=== PATIENT | female | born 1970 | race African-American/Black ===

== ENCOUNTER 2019-07-26 16:31 | Observation (INO) | payer OTHER, SELFPAY ==
[2019-07-26] MEDS ORDERED: KETOROLAC 30 MG/ML INJ ONE ×2 (17:40→21:28)
[2019-07-26] MEDS ORDERED: METHOCARBAMOL 1,000 MG/10 ML VIAL IV ONE (17:40)
[2019-07-26] MEDS ORDERED: NA CHLORIDE 0.9% 100 ML IV ONE (17:40)
[2019-07-26] MEDS ORDERED: ONDANSETRON 4 MG/2 ML VIAL ONE ×2 (17:40→19:57)
[2019-07-26] MEDS ORDERED: MORPHINE 4 MG/ML SYR ONE (17:40)
[2019-07-26 18:57] LABS: Urine Blood NEGATIVE (NEG); Urine Glucose NEGATIVE (NEG); Urine Protein 1+ (NEG)
--- NOTE | 2019-07-26 19:03 | ER ---
Nurse's Notes [facility] Name: Paula Tavares Age: 49 yrs Sex: Female : 1970 Arrival Date: 07/26/2019 Time: 16:34 Bed 14 Private MD: Diagnosis: Lobar pneumonia, unspecified organism;Urinary tract infection, site not specified Presentation: 07/26 16:37 Presenting complaint: Left mid back pain and nausea x 3 days. Transition of care: hb patient was not received from another setting of care. Onset of symptoms was July 23, 2019. Risk Assessment: Do you want to hurt yourself or someone else? Patient reports no desire to harm self or others. Initial Sepsis Screen: Does the patient meet any 2 criteria? No. Patient's initial sepsis screen is negative. Does the patient have a suspected source of infection? No. Patient's initial sepsis screen is negative. Care prior to arrival: None. 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 - Social history:: Smoking status: Patient/guardian denies using tobacco. - Ebola Screening: : No symptoms or risks identified at this time. Screenin:53 Abuse screen: Denies threats or abuse. Denies injuries from another. Nutritional ph screening: No deficits noted. Tuberculosis screening: No symptoms or risk factors identified. Fall Risk None identified. Assessment: 17:15 General: Appears in no apparent distress. uncomfortable. Pain: Complains of pain in ph left mid back. Neuro: Level of Consciousness is awake, alert, obeys commands, Oriented to person, place, time, situation. Cardiovascular: Capillary refill < 3 seconds in bilateral fingers Patient's skin is warm and dry. Respiratory: Airway is patent Respiratory effort is even, unlabored, Respiratory pattern is regular, symmetrical. GI: Reports nausea, Patient currently denies abdominal pain, vomiting. Derm: Skin is intact, is healthy with good turgor, Skin is pink, warm \\T\\ dry. Musculoskeletal: Circulation, motion, and sensation intact. Range of motion: intact in all extremities. 18:30 Reassessment: Patient appears in no apparent distress at this time. Patient and/or ph family updated on plan of care and expected duration. Pain level reassessed. Patient is alert, oriented x 3, equal unlabored respirations, skin warm/dry/pink. Pt states, " It still hurts but not as bad.". 19:15 Reassessment: Patient states back pain returning at this time; Dr. Borrero at bedside lp1 to discuss plan of care, will add some orders prior to discharge. 19:15 General: Appears uncomfortable, Behavior is appropriate for age. lp1 19:35 Reassessment: Patient returned from CT; States nausea returning at this time. lp1 20:00 Reassessment: Pt complaining of nausea, provider notified, medication order obtained, ea medication administered, pt tolerating well. 20:45 Reassessment: Dr. Regalado discussed care and results with patient; patient states lp1 continued left back pain. 21:13 Reassessment: Dr. Da Silva at bedside to discuss care with patient. lp1 22:26 Reassessment: Patient appears in no apparent distress at this time. No changes from wh previously documented assessment. Patient and/or family updated on plan of care and expected duration. Pain level reassessed. Patient is alert, oriented x 3, equal unlabored respirations, skin warm/dry/pink. Vital Signs: 16:40 BP 158 / 100; Pulse 89; Resp 16; Temp 98.5; Pulse Ox 100% on R/A; Weight 112.49 kg; hb Height 5 ft. 5 in. (165.10 cm); Pain 10/10; 17:40 BP 148 / 84; Pulse 89; Resp 18; Temp 97.5(TE); Pulse Ox 99% on R/A; mh5 18:55 BP 140 / 81; Pulse 95; Resp 17; Pulse Ox 100% on R/A; mh5 19:30 BP 142 / 86; Pulse 90; Resp 18; Pulse Ox 100% on R/A; Pain 8/10; lp1 20:15 BP 141 / 87; Pulse 92; Resp 18; Pulse Ox 100% on R/A; lp1 21:12 BP 132 / 76; Pulse 94; Resp 18; Pulse Ox 100% on R/A; Pain 8/10; lp1 22:27 BP 140 / 75; Pulse 89; Resp 18; Pulse Ox 99% on R/A; wh 16:40 Body Mass Index 41.27 (112.49 kg, 165.10 cm) hb ED Course: 16:34 Patient arrived in ED. mr 16:39 Triage completed. hb 16:40 Arm band placed on. hb 16:45 Cecilia Denton, RN is Primary Nurse. ph 16:53 Patient has correct armband on for positive identification. Bed in low position. Call ph light in reach. Side rails up X 1. Pulse ox on. NIBP on. Door closed. Noise minimized. Warm blanket given. Head of bed lowered. 16:53 Patient has correct armband on for positive identification. Bed in low position. Call mh5 light in reach. Side rails up X2. Warm blanket given. Pulse ox on. NIBP on. 16:55 Mohamud Borrero MD is Attending Physician. kdr 17:36 Inserted saline lock: 20 gauge in right antecubital area, using aseptic technique. mh5 Blood collected. 19:24 CT completed. Patient tolerated procedure well. Patient moved to CT via wheelchair. nj Patient moved back from CT. 19:25 CT Stone Protocol In Process Unspecified. EDMS 19:51 No provider procedures requiring assistance completed. lp1 21:26 Rogerio Da Silva DO is Hospitalizing Provider. gs 21:40 Initial lab(s) drawn, by va, sent to lab. lp1 21:41 Patient admitted, IV remains in place. lp1 Administered Medications: 17:45 Drug: TORadol - Ketorolac 15 mg Route: IVP; Site: left antecubital; ph 19:18 Follow up: Response: No adverse reaction; Pain is decreased ph 17:45 Drug: Zofran 4 mg Route: IVP; Site: left antecubital; ph 19:19 Follow up: Response: No adverse reaction ph 17:46 Drug: morphine 4 mg Route: IVP; Site: left antecubital; ph 19:19 Follow up: Response: No adverse reaction; Pain is decreased ph 17:49 Drug: Robaxin 1 grams Route: IVPB; Infused Over: 1 hrs; Site: left antecubital; ph 19:17 Follow up: Response: No adverse reaction; Pain is decreased; IV Status: Completed ph infusion 19:17 Drug: Cipro 500 mg Route: PO; ph 20:24 Follow up: Response: No adverse reaction lp1 19:40 Drug: Valium 5 mg Route: IVP; Site: left antecubital; lp1 20:15 Follow up: Response: Pain is decreased lp1 20:00 Drug: Zofran 4 mg Route: IVP; Site: left antecubital; ea 20:45 Follow up: Response: Nausea is decreased lp1 21:35 Drug: TORadol - Ketorolac 15 mg Route: IVP; Site: left antecubital; lp1 22:37 Follow up: Response: No adverse reaction; Pain is decreased 22:12 Drug: LevaQUIN 750 mg Volume: 150 ml; Route: IVPB; Infused Over: 90 mins; Site: left lp1 antecubital; 22:38 Follow up: Response: No adverse reaction; IV Status: Infusion continued upon admission Outcome: 18:58 Discharge ordered by . kdr 21:26 Decision to Hospitalize by Provider. 21:41 Condition: stable lp1 21:41 Instructed on the need for admit. 22:36 Admitted to Tele accompanied by tech, via stretcher, room 414, with chart, Report wh called to Marylu ASCENCIO 22:36 Condition: good 22:36 Instructed on the need for admit. 22:38 Patient left the ED. Signatures: Dispatcher [employer] Mohamud Gates MD MD kdr Rivera, Maegan mr Khalida Martin RN RN [facility] Cecilia Denton RN RN ph Baxter, Heather, RN RN hb Jordan, Nathan nj Martinez, Maria Cheryle Galvan RN RN ea Habalo, Winsy Marcel Regalado MD MD Corrections: (The following items were deleted from the chart) 18:16 07:46 morphine 4 mg IVP in left antecubital ph ph 21:41 19:15 Reassessment: Patient states back pain returning at this time; Dr. Borrero at lp1 bedside to discuss plan of care, will add some orders prior to discharge lp1
--- NOTE | 2019-07-26 19:03 | EDPHYS ---
Physician Documentation [facility] Name: Paula Tavares Age: 49 yrs Sex: Female : 1970 Arrival Date: 07/26/2019 Time: 16:34 Bed 14 Private MD: ED Physician Mohamud Borrero HPI: 07/27 07:13 This 49 yrs old Black Female presents to ER via Ambulatory with complaints of Back Pain.kdr 07:13 The patient presents with pain that is acute, with no known mechanism of injury. The kdr symptoms are located in the low back. Onset: The symptoms/episode began/occurred suddenly, just prior to arrival. The pain does not radiate. Associated signs and symptoms: Pertinent positives: nausea, Pertinent negatives: abdominal pain, chest pain, constipation, fever, hematuria, incontinence, numbness, tingling, urinary retention, vomiting. The problem was sustained from unknown cause. Modifying factors: The patient symptoms are alleviated by nothing, the patient symptoms are aggravated by any movement, bending. Severity of symptoms: At their worst the symptoms were severe, incapacitating, just prior to arrival, in the emergency department the symptoms are unchanged. The patient has not experienced similar symptoms in the past. The patient has not recently seen a physician. 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 - Social history:: Smoking status: Patient/guardian denies using tobacco. - Ebola Screening: : No symptoms or risks identified at this time. ROS: 21:31 Abdomen/GI: Positive for pt is having some reflux symptoms no abdominal pain hx of lap gs band. 21:31 All other systems are negative. 07/27 07:13 Constitutional: Negative for fever, chills, and weight loss, Eyes: Negative for injury, kdr pain, redness, and discharge, Neck: Negative for injury, pain, and swelling, Cardiovascular: Negative for chest pain, palpitations, and edema, Respiratory: Negative for shortness of breath, cough, wheezing, and pleuritic chest pain, Abdomen/GI: Negative for abdominal pain, nausea, vomiting, diarrhea, and constipation, : Negative for injury, bleeding, discharge, and swelling, MS/Extremity: Negative for injury and deformity, Skin: Negative for injury, rash, and discoloration, Neuro: Negative for headache, weakness, numbness, tingling, and seizure activity. Psych: Negative for depression, anxiety, suicide ideation, homicidal ideation, and hallucinations, Allergy/Immunology: Negative for hives, rash, and allergies, Endocrine: Negative for neck swelling, polydipsia, polyuria, polyphagia, and marked weight changes, Hematologic/Lymphatic: Negative for swollen nodes, abnormal bleeding, and unusual bruising. Back: Positive for decreased range of motion, pain at rest, pain with movement, of the left mid back. Exam: 07:13 Constitutional: This is a well developed, well nourished patient who is awake, alert, kdr and in no acute distress. Head/Face: Normocephalic, atraumatic. Eyes: Pupils equal round and reactive to light, extra-ocular motions intact. Lids and lashes normal. Conjunctiva and sclera are non-icteric and not injected. Cornea within normal limits. Periorbital areas with no swelling, redness, or edema. Neck: Trachea midline, no thyromegaly or masses palpated, and no cervical lymphadenopathy. Supple, full range of motion without nuchal rigidity, or vertebral point tenderness. No Meningismus. Chest/axilla: Normal chest wall appearance and motion. Nontender with no deformity. No lesions are appreciated. Cardiovascular: Regular rate and rhythm with a normal S1 and S2. No gallops, murmurs, or rubs. Normal PMI, no JVD. No pulse deficits. Respiratory: Lungs have equal breath sounds bilaterally, clear to auscultation and percussion. No rales, rhonchi or wheezes noted. No increased work of breathing, no retractions or nasal flaring. Abdomen/GI: Soft, non-tender, with normal bowel sounds. No distension or tympany. No guarding or rebound. No evidence of tenderness throughout. Skin: Warm, dry with normal turgor. Normal color with no rashes, no lesions, and no evidence of cellulitis. MS/ Extremity: Pulses equal, no cyanosis. Neurovascular intact. Full, normal range of motion. Neuro: Awake and alert, GCS 15, oriented to person, place, time, and situation. Cranial nerves II-XII grossly intact. Motor strength 5/5 in all extremities. Sensory grossly intact. Cerebellar exam normal. Normal gait. Psych: Awake, alert, with orientation to person, place and time. Behavior, mood, and affect are within normal limits. 07:13 Back: pain, that is severe, ROM is painful, CVA tenderness, that is moderate, muscle spasm, is not present. Vital Signs: 07/26 16:40 BP 158 / 100; Pulse 89; Resp 16; Temp 98.5; Pulse Ox 100% on R/A; Weight 112.49 kg; hb Height 5 ft. 5 in. (165.10 cm); Pain 10/10; 17:40 BP 148 / 84; Pulse 89; Resp 18; Temp 97.5(TE); Pulse Ox 99% on R/A; mh5 18:55 BP 140 / 81; Pulse 95; Resp 17; Pulse Ox 100% on R/A; mh5 19:30 BP 142 / 86; Pulse 90; Resp 18; Pulse Ox 100% on R/A; Pain 8/10; lp1 20:15 BP 141 / 87; Pulse 92; Resp 18; Pulse Ox 100% on R/A; lp1 21:12 BP 132 / 76; Pulse 94; Resp 18; Pulse Ox 100% on R/A; Pain 8/10; lp1 22:27 BP 140 / 75; Pulse 89; Resp 18; Pulse Ox 99% on R/A; wh 16:40 Body Mass Index 41.27 (112.49 kg, 165.10 cm) hb MDM: 18:58 Patient medically screened. kdr 21:20 Data reviewed: vital signs, nurses notes. ED course: pt seen and examined reviewed labs gs xrays still in some pain will obs treat uti pna. pt stable. 07/26 18:52 Order name: Urine Dipstick--Ancillary (enter results); Complete Time: 19:09 bd 07/26 18:54 Order name: Urine Microscopic Only; Complete Time: 20:19 ph 07/26 18:54 Order name: Urine Culture ph 07/26 19:09 Order name: CBC with Diff; Complete Time: 20: kdr 07/26 19:09 Order name: Chem 7; Complete Time: 20: kdr 07/26 21:15 Order name: Blood Culture* 07/26 19:10 Order name: CT Stone Protocol; Complete Time: 20: gs 07/26 21:15 Order name: Lactate 07/26 21:15 Order name: Procalcitonin Administered Medications: 17:45 Drug: TORadol - Ketorolac 15 mg Route: IVP; Site: left antecubital; ph 19:18 Follow up: Response: No adverse reaction; Pain is decreased ph 17:45 Drug: Zofran 4 mg Route: IVP; Site: left antecubital; ph 19:19 Follow up: Response: No adverse reaction ph 17:46 Drug: morphine 4 mg Route: IVP; Site: left antecubital; ph 19:19 Follow up: Response: No adverse reaction; Pain is decreased ph 17:49 Drug: Robaxin 1 grams Route: IVPB; Infused Over: 1 hrs; Site: left antecubital; ph 19:17 Follow up: Response: No adverse reaction; Pain is decreased; IV Status: Completed ph infusion 19:17 Drug: Cipro 500 mg Route: PO; ph 20:24 Follow up: Response: No adverse reaction lp1 19:40 Drug: Valium 5 mg Route: IVP; Site: left antecubital; lp1 20:15 Follow up: Response: Pain is decreased lp1 20:00 Drug: Zofran 4 mg Route: IVP; Site: left antecubital; ea 20:45 Follow up: Response: Nausea is decreased lp1 21:35 Drug: TORadol - Ketorolac 15 mg Route: IVP; Site: left antecubital; lp1 22:37 Follow up: Response: No adverse reaction; Pain is decreased 22:12 Drug: LevaQUIN 750 mg Volume: 150 ml; Route: IVPB; Infused Over: 90 mins; Site: left lp1 antecubital; 22:38 Follow up: Response: No adverse reaction; IV Status: Infusion continued upon admission Disposition: 07/26/19 21:26 Hospitalization ordered by Rogerio Da Silva for Observation. Preliminary diagnosis are Lobar pneumonia, unspecified organism, Urinary tract infection, site not specified. - Bed requested for Telemetry/MedSurg (observation). - Status is Observation. wh - Condition is Stable. - Problem is new. - Symptoms have improved. UTI on Admission? Yes Signatures: Dispatcher [employer] EDMS Mohamud Borrero MD MD [facility] Khalida Martin, RN RN lp1 Cecilia Denton RN RN Nini Frye, RN RN Naomi Littlejohn, RN RN Cheryle Schmitz, RN Yolanda Stuart ea Marcel Regalado MD MD gs Corrections: (The following items were deleted from the chart) 21:19 18:58 07/26/2019 18:58 Discharged to Home. Impression: Low back pain; Muscle spasm of gs back; Urinary tract infection, site not specified. Condition is Stable. Forms are Medication Reconciliation Form, Thank You Letter, Antibiotic Education, Prescription Opioid Use. Follow up: Private Physician; When: 2 - 3 days; Reason: If symptoms return, Further diagnostic work-up, Recheck today's complaints, Continuance of care, Re-evaluation by your physician. Problem is an acute exacerbation. Symptoms have improved. [facility] 21:40 21:26 Hospitalization Ordered by Rogerio Da Silva DO for Observation. Preliminary diagnosis is Lobar pneumonia, unspecified organism; Urinary tract infection, site not specified. Bed requested for Telemetry/MedSurg (observation). Status is Observation. Condition is Stable. Problem is new. Symptoms have improved. UTI on Admission? Yes. 22:38 21:40 07/26/2019 21:26 Hospitalization Ordered by Rogerio Da Silva DO for Observation. Preliminary diagnosis is Lobar pneumonia, unspecified organism; Urinary tract infection, site not specified. Bed requested for Telemetry/MedSurg (observation). Status is Observation. Condition is Stable. Problem is new. Symptoms have improved. UTI on Admission? Yes.
[2019-07-26] MEDS ORDERED: CIPROFLOXACIN HCL 500 MG TAB ONE (19:07)
[2019-07-26] MEDS ORDERED: DIAZEPAM 10 MG/2 ML INJ SYRINGE ONE (19:27)
[2019-07-26 19:39] LABS: Absolute Lymphocytes (CBC) 1.9 K/uL (0.7-4.9); Basophils % 0.7 % (0-1.3); Hematocrit 30.4 % (36.0-45.0); MPV 11.4 fL (7.6-11.3); RBC Red Blood Cell Count 3.92 M/uL (3.86-4.86)
[2019-07-26 19:54] LABS: Urine Bacteria 20-50 /HPF (<20); Urine Culture Reflex Order NOT NEEDED; Urine RBC <5 /HPF (NONE SEEN)
--- NOTE | 2019-07-26 20:02 | RAD REPORT ---
EXAM DESCRIPTION: CT - Stone Protocol - 07/26/2019 7:23 pm CLINICAL HISTORY: Left back pain, abdominal pain, prior lap band surgery, prior umbilical hernia rep air COMPARISON: None. TECHNIQUE: Axial 5 mm thick images were obtained without oral or IV contrast. The [id number] span s the entirety of the system including uppermost abdomen and lung bases. All CT scans are performed using dose optimization technique as appropriate and may include automated exposure control or mA/KV adjustment according to patient size. FINDINGS: No hydronephrosis is present and no obstructing ureteral calculi. No suspicious renal mass es. Isodense masses and pyelonephritis are not excluded on a stone protocol CT scan. No urinary bladd er suspicious finding. No significant adrenal finding. Pelvic floor phleboliths are present. Imaged portions of the liver, spleen and pancreas show no suspicious findings on non-contrast imaging . Liver has a Reidel configuration as a normal variant. Gallbladder and biliary tree show no suspicio us findings. No suspicious bowel findings. Lap band is in place and appears to have slipped. There is more stomac h superior to the level of the lap band than typically seen. No hernia, mass or bulky lymphadenopathy noted. No free air, free fluid or inflammatory stranding. Scattered bony degenerative changes are present. Patchy opacities are present in the posterior left lung base. No pleural effusion. IMPRESSION: Patchy left base pneumonia changes are present. 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 Isodense masses and pyelonephritis are not excluded on stone protocol technique. No acute GI process seen. Lap band is in place and appears to have slipped with more stomach above th e level of the lap band than typically seen. This is difficult to evaluate in the absence of contrast .
[2019-07-26 20:04] LABS: Potassium 3.8 mmol/L (3.5-5.1)
[2019-07-26] MEDS ORDERED: Levofloxacin 750mg IV 750 MG/150 ML BAG IV ONE (21:28)
--- NOTE | 2019-07-26 21:40 | P.HP ---
Certification for Inpatient Patient admitted to: Observation With expected LOS: <2 Midnights Patient will require the following post-hospital care: None Practitioner: I am a practitioner with admitting privileges, knowledge of patient current condition, hospital course, and medical plan of care. Services: Services provided to patient in accordance with Admission requirements found in Title 42 Section 412.3 of the Code of Federal Regulations Patient History Date of Service: 07/26/19 Primary Care Provider: Dr. Santillan([place]) Reason for admission: Left-sided back pain History of Present Illness: 49-year-old female presented to the emergency room with left lower back pain. Patient with multiple medical problems including diabetes mellitus type 2 non insulin dependent, hypertension, hyperlipidemia, GERD, diabetic neuropathy, chronic allergies, anemia and obesity. Patient reports falling sometime in June. She hurt her back at that time. Since then she has been having some lower back pain. 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 She is originally from [place]. Over the last 48 hr she start to have increasing back pain to the left side. She rated the pain 10/ 10. She reports some muscle spasm with this. She has reported a cough. She reports some chills. She denies any fever, significant shortness of breath. She came to the ER for further evaluation. In the ER patient evaluated. White count 7.2, hemoglobin 9.7. Sodium 140, potassium 3.8, BUN of 14, creatinine 0.99 with a GFR of 89. Urinalysis showed evidence of bacteria. CT scan showed a left base pneumonia. Patient was given antibiotics in the emergency room. The patient was to be discharged home but pain to the back increased. I was asked to admit the patient for observation. When I saw the patient in the ER, pain to the left lower back still present. Slightly improved noted. Patient takes multiple medications for hypertension, diabetes, hyperlipidemia. Patient is originally from [place]. She is working in the area. She is by herself. Home medications list reviewed: Yes - Past Medical/Surgical History Diabetic: Yes -: Diabetes mellitus type 2, non-insulin dependent -: Hypertension -: Hyperlipidemia -: Diabetic neuropathy -: GERD, history lap band -: Chronic allergies -: Chronic back pain -: Anxiety -: Patient with history of lap band Psychosocial/ Personal History: Patient is working in the area. 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 [employer] - Social History Smoking Status: Never smoker Alcohol use: Yes CD- Drugs: No Caffeine use: Yes Place of Residence: Home Review of Systems General: As per HPI Eyes: Unremarkable ENT: Nose Congestion, Unremarkable Respiratory: Cough, As per HPI Cardiovascular: Unremarkable Gastrointestinal: Unremarkable Genitourinary: Unremarkable Musculoskeletal: Back Pain, As per HPI Integumentary: Unremarkable Neurological: Unremarkable Lymphatics: Unremarkable Physical Examination - Physical Exam General: Alert, In no apparent distress, Oriented x3, Cooperative HEENT: Atraumatic, Normocephalic, PERRLA, Mucous membr. moist/pink Neck: Supple, No Thyromegaly Respiratory: Crackles/rales (Mild crackles to the left base.) Cardiovascular: Normal pulses, Regular rate/rhythm Gastrointestinal: Normal bowel sounds, Soft and benign, Non-distended, No ascites, No tenderness, No masses, No rebound, No guarding Musculoskeletal: No warmth, Tenderness (Pain to the left back region.) Integumentary: No erythema, No warmth, No cyanosis, Tenderness/swelling ( Minimal nonpitting edema to the lower extremities) Neurological: Normal speech, Normal strength at 5/5 x4 extr, Normal tone, Normal affect - Studies Laboratory Data (last 24 hrs) 07/26/19 17:35: Sodium 140, Potassium 3.8, BUN 14, Creatinine 0.99, Glucose 89 07/26/19 17:35: WBC 7.2, Hgb 9.7 L, Hct 30.4 L, Plt Count 248 Assessment and Plan - Plan Impression: Left lower back pain secondary to left base pneumonia UTI Diabetes mellitus type 2, non-insulin dependent Hypertension Hyperlipidemia Diabetic neuropathy Chronic back pain GERD with history of lap band procedure Chronic allergies Anxiety Plan: Left lower back pain secondary to left base pneumonia: Patient will be admitted for further evaluation and observation. Will start IV Zithromax and Rocephin. Will maintain sats above 90%. Will encourage incentive spirometer. Will provide medication for cough and congestion. Lactic acid and pro calcitonin to be obtained. Will also check influenza test and strep test. Will have physical therapy ambulate patient tomorrow. Anticipate discharge tomorrow with clinical improvement. Daytime hospitalist will continue her care. Patient may go home on oral antibiotic therapy to cover both for pneumonia and UTI. UTI: Urine culture obtained. Patient on Rocephin. Diabetes mellitus type 2, non-insulin dependent: Will continue Accu-Cheks and provide sliding scale. Hypertension: Restart home medications of diltiazem 300 mg daily, hydralazine 25 mg 1 pill twice daily, and Norvasc 10 mg daily. Will monitor and adjust appropriately. Hyperlipidemia: Restart Zocor 20 mg daily Diabetic neuropathy: Restart gabapentin 600 mg at bedtime. Chronic back pain: Will provide lidocaine patch in Zanaflex as needed for muscle spasm. Will continue with home medication of hydrocodone as needed for pain. GERD with history of lap band procedure: Continue with Protonix 40 mg daily. Chronic allergies: Continue Singulair 10 mg daily. Anxiety: Continue with Xanax as needed Anemia likely of chronic disease and iron deficiency: Will monitor this closely. Encourage multi vitamin daily. Recommend GI evaluation as an outpatient. Recommend no further use of nonsteroidal anti-inflammatories. Patient takes diclofenac. Discharge Plan: Home Plan to discharge in: 24 Hours - Advance Directives Does patient have a Living Will: No Does patient have a Durable POA for Healthcare: No - Code Status/Comfort Care Code Status Assessed: Yes (Patient is full code) Time Spent Managing Pts Care (In Minutes): 55
[2019-07-26 22:55] VITALS: BMI 41.8
[2019-07-26] MEDS ORDERED: BENZONATATE 100 MG CAP PO PRN (22:58)
[2019-07-26] MEDS ORDERED: ALPRAZOLAM 0.5 MG TABLET PO PRN (22:58)
[2019-07-26] MEDS ORDERED: ACETAMINOPHEN 500 MG TAB PO PRN (22:58)
[2019-07-27] MEDS: HYDROCODONE/APAP 7.5/325 MG TAB PO PRN ×2 (00:06→08:48)
[2019-07-27] MEDS: TIZANIDINE 4 MG TABLET PO PRN ×2 (00:06→11:53)
[2019-07-27] MEDS: ONDANSETRON 4 MG/2 ML VIAL IV PRN ×2 (00:07→05:51)
[2019-07-27] MEDS: IPRATROPIUM BROM 0.5MG/2.5ML NEB PRN ×2 (00:10→08:36)
[2019-07-27] MEDS: ALBUTEROL 2.5 MG/3 ML NEB SOL NEB PRN ×2 (00:10→08:36)
[2019-07-27 05:40] LABS: Absolute Lymphocytes (CBC) 1.3 K/uL (0.7-4.9); Basophils % 0.7 % (0-1.3); Hematocrit 25.9 % (36.0-45.0); Lymphocytes % 22.7 % (15.3-44.8); MPV 10.3 fL (7.6-11.3); RBC Red Blood Cell Count 3.32 M/uL (3.86-4.86)
[2019-07-27 05:46] LABS: Magnesium 1.8 mg/dL (1.8-2.4); Potassium 3.9 mmol/L (3.5-5.1)
[2019-07-27 06:08] LABS: Urine Appearance CLOUDY; Urine Bilirubin NEGATIVE (NEG); Urine Blood NEGATIVE (NEG); Urine Color YELLOW; Urine Glucose NEGATIVE (NEG); Urine Microscopic Reflex ORDER UMIC; Urine Protein NEGATIVE (NEG); Urine Urobilinogen 0.2 mg/dL (0.2-1.0)
[2019-07-27] MEDS ORDERED: PANTOPRAZOLE 40MG TABLET PO SCH (06:30)
[2019-07-27 07:09] LABS: Urine Bacteria <20 /HPF (<20); Urine Culture Reflex Order NOT NEEDED; Urine RBC <5 /HPF (NONE SEEN)
[2019-07-27] MEDS: INSULIN -REGULAR HUMAN 50 UNIT/0.5 ML ML SQ SCH ×2 (07:30→11:30)
[2019-07-27] MEDS ORDERED: MAGNESIUM SULFATE 1 gm IVPB 1 GM/100 ML BAG IV ONE (08:00)
[2019-07-27] MEDS ORDERED: AZITHROMYCIN IV 500 MG in NA CHLORIDE 0.9% 250 ML IVPB SCH (09:00)
[2019-07-27] MEDS ORDERED: DILTIAZEM HCL 120 MG SR CAP PO SCH (09:00)
[2019-07-27] MEDS ORDERED: AMLODIPINE 10 MG TAB PO SCH (09:00)
[2019-07-27] MEDS ORDERED: CEFTRIAXONE 1 GM/NS 50 ML 1 GM/50 ML BAG IV SCH (09:00)
[2019-07-27] MEDS ORDERED: MONTELUKAST 10 MG TAB PO SCH (09:00)
[2019-07-27] MEDS ORDERED: CEFTRIAXONE/SWI 1gm 1 GM/10 ML SYR IV SCH (09:00)
[2019-07-27] MEDS ORDERED: GUAIFENESIN 600 MG SA TAB PO SCH (09:00)
[2019-07-27] MEDS ORDERED: LIDOCAINE 5% PATCH TOP SCH (09:00)
[2019-07-27] MEDS ORDERED: ASPIRIN 81 MG CHEWABLE TABLET PO SCH (09:00)
[2019-07-27] MEDS ORDERED: DILTIAZEM HCL 300 MG SR CAP PO SCH (09:00)
[2019-07-27] MEDS ORDERED: ENOXAPARIN 40 MG/0.4 ML SQ SCH (09:00)
[2019-07-27] MEDS ORDERED: HYDRALAZINE HCL 25 MG TABLET PO SCH (09:00)
[2019-07-27] MEDS ORDERED: DILTIAZEM HCL 180 MG SR CAP PO SCH (09:00)
[2019-07-27 09:35] VITALS: O2SAT 96
[2019-07-27 13:01] VITALS: BP 112/64; TEMP 98.5
--- NOTE | 2019-07-27 13:01 | P.SSS ---
Patient History Date of Service: 07/27/19 Primary Care Provider: Dr. Santillan([place]) Reason for admission: Left-sided back pain History of Present Illness: 49-year-old female presented to the emergency room with left lower back pain. Patient with multiple medical problems including diabetes mellitus type 2 non insulin dependent, hypertension, hyperlipidemia, GERD, diabetic neuropathy, chronic allergies, anemia and obesity. Patient reports falling sometime in June. She hurt her back at that time. Since then she has been having some lower back pain. 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 Over the last 48 hr she start to have increasing back pain to the left side. She rated the pain 10/ 10. She reports some muscle spasm with this. She has reported a cough. She reports some chills. She denies any fever, significant shortness of breath. She came to the ER for further evaluation. In the ER patient evaluated. White count 7.2, hemoglobin 9.7. Sodium 140, potassium 3.8, BUN of 14, creatinine 0.99 with a GFR of 89. Urinalysis showed evidence of bacteria. CT scan showed a left base pneumonia. Patient was given antibiotics in the emergency room. The patient was to be discharged home but pain to the back increased. I was asked to admit the patient for observation. When I saw the patient in the ER, pain to the left lower back still present. Slightly improved noted. Patient takes multiple medications for hypertension, diabetes, hyperlipidemia. Patient is originally from [place]. She is working in the area. She is by herself. Allergies codeine Allergy (Verified 07/26/19 22:57) Itching/Hives/Rash erythromycin base Allergy (Verified 07/26/19 22:57) Itching/Hives/Rash meperidine [From Demerol] Allergy (Verified 07/26/19 22:57) Itching/Hives/Rash metaxalone [From Skelaxin] Allergy (Verified 07/26/19 22:57) Itching/Hives/Rash pentazocine [From Talwin] Allergy (Verified 07/26/19 22:57) Itching/Hives/Rash Sulfa (Sulfonamide Antibiotics) Allergy (Verified 07/26/19 22:57) Itching/Hives/Rash IV contrast Allergy (Uncoded 07/26/19 22:57) Itching/Hives/Rash Home Medications: ALPRAZolam [Xanax*] 1 mg PO BID PRN 07/27/19 Albuterol Sulfate [Proair Hfa] 1 - 2 puff IH Q4H PRN 07/27/19 Amlodipine [Norvasc*] 10 mg PO DAILY 07/27/19 Amox/Clavulanate [Augmentin 500-125 mg Tab] 500 mg PO BID #14 tab 07/27/19 Aspirin [Aspir-Low] 81 mg PO DAILY 07/27/19 Atorvastatin Calcium [Lipitor*] 20 mg PO BEDTIME 07/27/19 Diclofenac Sodium [Voltaren] 25 mg PO BID 07/27/19 Furosemide [Lasix*] 20 mg PO DAILY PRN 07/27/19 Gabapentin 600 mg PO BEDTIME 07/27/19 Hydralazine [Apresoline*] 25 mg PO BID 07/27/19 Hydrocodone 7.5/APAP 325 [Burr 7.5/325 mg*] 1 tab PO Q6H PRN 07/27/19 Metformin HCl 1,000 mg PO BID 07/27/19 Montelukast [Singulair*] 10 mg PO DAILY 07/27/19 Pantoprazole [Protonix Tab*] 20 mg PO DAILY 07/27/19 Potassium Chloride [K-Dur] 20 meq PO DAILY PRN 07/27/19 Ranitidine [Zantac*] 150 mg PO BEDTIME 07/27/19 Valsartan [Diovan*] 320 mg PO DAILY 07/27/19 Zolpidem Tartrate [Ambien*] 10 mg PO BEDTIME PRN 07/27/19 buPROPion HCl [Wellbutrin*] 150 mg PO DAILY 07/27/19 - Past Medical/Surgical History Has patient received pneumonia vaccine in the past: Yes Diabetic: Yes -: Diabetes mellitus type 2, non-insulin dependent -: Hypertension -: Hyperlipidemia -: Diabetic neuropathy -: GERD, history lap band -: Chronic allergies -: Chronic back pain -: Anxiety, depression -: febrile seizures -: anemia -: DVT -: polycystic ovarian disease -: Patient with history of lap band -: left rotator cuff repair -: left heel bone spur removal -: umbilical hernia repair Psychosocial/ Personal History: Patient is working in the area. 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 moist/pink, EOMI, Sclerae nonicteric Neck: Supple, 2+ carotid pulse no bruit, No LAD, Without JVD or thyroid abnormality Respiratory: Clear to auscultation bilaterally, Normal air movement Cardiovascular: Regular rate/rhythm, Normal S1 S2 Gastrointestinal: Normal bowel sounds, No tenderness Musculoskeletal: No tenderness Integumentary: No rashes Neurological: Normal gait, Normal speech, Normal strength at 5/5 x4 extr, Normal tone, Normal affect Lymphatics: No axilla or inguinal lymphadenopathy - Studies Laboratory Data (last 24 hrs) 07/26/19 17:35: Sodium 140, Potassium 3.8, BUN 14, Creatinine 0.99, Glucose 89 07/26/19 17:35: WBC 7.2, Hgb 9.7 L, Hct 30.4 L, Plt Count 248 - Diagnosis (Problem(s)) (1) Muscle spasm Current Visit: Yes Status: Acute (2) Left lower lobe pneumonia Current Visit: Yes Status: Acute Qualifiers: Pneumonia type: due to unspecified organism Qualified Code(s): J18.1 - Lobar pneumonia, unspecified organism Treatment Summary: Overall During hospital Stay Pt remained stable. Admitted for left sided Muscle spasm and pain.CT abd consistent with possible Left LL PNA. WBC and procal however negative. Pt monitored here for 24hrs. Improvement in the symptoms. Given IS to use and asked to F.u with PCP. Given ppx for Augmentin and DC home. Asked to take OTC med for muscle relaxation and get hot pack for muscle relaxation - Disposition Disposition: ROUTINE DISCHARGE Condition: GOOD Diet: Regular Activity: Ad edward
[2019-07-27] MEDS ORDERED: ATORVASTATIN 10 MG TAB PO SCH (21:00)
[2019-07-27] MEDS ORDERED: GABAPENTIN 300 MG CAP PO SCH (21:00)
== END 2019-07-27 16:46 | disposition home or self-care (01) ==
LOC: ER 16:31 → ERHOLD 21:37 → 4TH 22:21
PROVIDERS: ADMIT Family Medicine; ATTEND Family Medicine
DX: J18.9 Pneumonia, unspecified organism (principal); N39.0 Urinary tract infection, site not specified; M62.838 Other muscle spasm; I10 Essential (primary) hypertension; E78.5 Hyperlipidemia, unspecified; E66.9 Obesity, unspecified; F41.9 Anxiety disorder, unspecified; D63.8 Anemia in other chronic diseases classified elsewhere; M54.9 Dorsalgia, unspecified; Z68.41 Body mass index [BMI] 40.0-44.9, adult; K21.9 Gastro-esophageal reflux disease without esophagitis; E11.40 Type 2 diabetes mellitus with diabetic neuropathy, unspecified
CPT/HCPCS: 36415; 74176; 76377; 80048; 81003; 81015; 82962; 83605; 83735; 84145; 85025; 87040; 87070; 87081; 87086; 87088; 87804; 94640; 96365; 96367; 96375; 97161; 99285; G0378; J0456; J0696; J1650; J2405; J2800; J3360; J3475